=== PATIENT | male | born 1965 | race Caucasian/White ===

== ENCOUNTER 2018-05-16 13:52 | Emergency (ER) | payer MEDICAID, OTHER ==
[~2018-05-16] VITALS: Ht 177.8 cm; Wt 83.9 kg
[2018-05-16] MEDS ORDERED: HYDROcodone-ACET 10/325MG TAB PO ONE (15:30)
[2018-05-16 16:41] VITALS: BP 133/82
== END 2018-05-16 16:50 | disposition home or self-care (01) ==
LOC: ER 13:52
DX: S42.402A Unspecified fracture of lower end of left humerus, initial encounter for closed fracture (principal); F17.210 Nicotine dependence, cigarettes, uncomplicated; X58.XXXA Exposure to other specified factors, initial encounter; Y93.89 Activity, other specified; Y99.8 Other external cause status; Y92.89 Other specified places as the place of occurrence of the external cause
CPT/HCPCS: 29105; 73080; 73090; 73110